=== PATIENT | female | born 1950 ===

== ENCOUNTER → 2017-10-03 | Outpatient (CLI) | payer MEDICARE, OTHER | LOC: GMAB 15:21 | PROVIDERS: ATTEND Family Medicine | DX: E03.9 Hypothyroidism, unspecified (principal) ==

== ENCOUNTER → 2018-01-16 | Outpatient (CLI) | payer MEDICARE, OTHER | LOC: GMAB 16:29 | PROVIDERS: ATTEND Family Medicine | DX: G60.3 Idiopathic progressive neuropathy (principal); G57.93 Unspecified mononeuropathy of bilateral lower limbs; E03.9 Hypothyroidism, unspecified ==

== ENCOUNTER → 2018-01-22 | Outpatient (CLI) | payer MEDICARE, OTHER ==
--- NOTE | 2018-01-22 15:13 | MRI ---
MRI right shoulder without contrast INDICATION: Shoulder pain no specific injury initial encounter TECHNIQUE: Noncontrast MR imaging right shoulder FINDINGS: Mild tendinopathy distal subscapularis. No rupture or retraction. No bicep rupture or dislocation. Mild subacromial and subdeltoid bursitis Fairly high-grade interstitial and bursal surface partial tear distal supraspinatus. No retraction. Infraspinatus is intact. No displaced labral tear. Mild AC joint osteoarthrosis. Grade 1 marbling throughout the rotator cuff muscle bellies. IMPRESSION: High-grade interstitial and bursal surface partial tear distal supraspinatus with adjacent bursitis Mild AC joint osteoarthrosis Mild grade 1 marbling throughout the rotator cuff muscle bellies. Mild tendinopathy distal subscapularis without rupture or retraction Electronically signed by: Richard Dao MD 01/22/2018 3:12 PM CDT
== END ==
LOC: MRI 14:00
PROVIDERS: ATTEND Family Medicine
DX: M75.101 Unspecified rotator cuff tear or rupture of right shoulder, not specified as traumatic (principal); M19.011 Primary osteoarthritis, right shoulder

== ENCOUNTER → 2018-05-08 | Outpatient (CLI) | payer MEDICARE, OTHER | LOC: GMAE 19:17 | PROVIDERS: ATTEND Family Medicine | DX: E03.9 Hypothyroidism, unspecified (principal); R42 Dizziness and giddiness ==

== ENCOUNTER → 2018-08-13 | Outpatient (CLI) | payer MEDICARE, OTHER | LOC: GMAE 14:26 | PROVIDERS: ATTEND Family Medicine | DX: E03.9 Hypothyroidism, unspecified (principal) ==

== ENCOUNTER → 2018-08-17 | Outpatient (CLI) | payer MEDICARE, OTHER ==
--- NOTE | 2018-08-17 10:22 | RAD ---
Pelvis one view INDICATION: Hip pain IMPRESSION: Surgical clips bilateral pelvis. No evidence of fracture or dislocation in the hips. Faint lucency likely overlying skin fold at the junction of the left inferior pubic ramus and pubis. Correlate with tenderness in this area. Similar vague lucency in the right parasymphyseal region likely overlying lucency. Otherwise negative Electronically signed by: Richard Dao MD 08/17/2018 10:21 AM [facility]
--- NOTE | 2018-08-17 10:24 | RAD ---
Left hip 2 views INDICATION: Hip pain IMPRESSION: No fracture or dislocation. Lucent focus in the femoral neck likely impingement lesion/Sami's pit. No acute process Electronically signed by: Richard Dao MD 08/17/2018 10:23 AM [facility]
--- NOTE | 2018-08-17 10:25 | RAD ---
Right hip 2 views INDICATION: Hip pain IMPRESSION: No fracture or dislocation right hip. No advanced osteonecrosis or advanced osteoarthrosis. No acute process Electronically signed by: Richard Dao MD 08/17/2018 10:24 AM [facility]
== END ==
LOC: RAD 08:59
PROVIDERS: ATTEND Orthopaedic Surgery
DX: M25.551 Pain in right hip (principal); M25.552 Pain in left hip

== ENCOUNTER → 2018-08-20 | Outpatient (CLI) | payer MEDICARE, OTHER ==
--- NOTE | 2018-08-21 07:41 | MRI ---
EXAM DESCRIPTION: MRI pelvis/bilateral hips CLINICAL HISTORY: Bilateral hip pain COMPARISON: None. TECHNIQUE: Multiplanar, multisequence MR images of the pelvis/bilateral hips FINDINGS: Right hip: Tear of the anterior superior labrum best seen on oblique axial PD series 601 image 16 and 17. Insertional tendinosis of the gluteus minimus and anterior gluteus medius. The other tendons around the right hip are normal. Normal muscles Left hip: Small chronic impingement related cyst anterior superior femoral head neck junction. Tear of the mid anterior to anterior superior labrum with a small cleft fluid undermining the mid anterior labrum and contiguous tear anterior superior labrum seen on axial PD series 801 images 13 through 16 Severe insertional gluteus minimus tendinosis with intratendinous and peritendinous edema. The remaining tendon attachments to the proximal femur and left pelvis are normal. Normal muscles No pelvic soft tissue mass lesion, adenopathy or free fluid. No filling defect in the urinary bladder. No mass or inflammatory process in the small or large intestine included in the [id number] No abnormality along the course of the visualized lumbosacral plexus and proximal sciatic nerves IMPRESSION: Bilateral anterior superior labral tear of the hip Insertional tendinosis gluteus minimus bilaterally left greater than right. Insertional tendinosis anterior gluteus medius on the right Electronically signed by: Ceferino Toro MD 08/21/2018 7:40 AM [facility]
== END ==
LOC: MRI 14:00
PROVIDERS: ATTEND Orthopaedic Surgery
DX: S76.011A Strain of muscle, fascia and tendon of right hip, initial encounter (principal); S76.012A Strain of muscle, fascia and tendon of left hip, initial encounter; M76.01 Gluteal tendinitis, right hip

== ENCOUNTER → 2018-11-15 | Outpatient (CLI) | payer MEDICARE, OTHER | LOC: GMAE 14:39 | PROVIDERS: ATTEND Family Medicine | DX: E03.9 Hypothyroidism, unspecified (principal) ==

== ENCOUNTER → 2019-03-05 | Outpatient (CLI) | payer MEDICARE, OTHER ==
--- NOTE | 2019-03-05 15:20 | MRI ---
EXAM DESCRIPTION: Brain w/oContrast CLINICAL HISTORY: DISEASE OF SPINAL CORD COMPARISON: None available TECHNIQUE: Non contrast MRI of the brain is performed according to our usual protocol including multiplanar multi sequence technique. FINDINGS: Sagittal T1 images show intact corpus callosum. Normal pituitary gland with normal T1 appearance of the richard and medulla and upper cervical cord. Normal signal intensity within the clivus and calvarium. Axial T2 fat sat images reveal preservation of intracranial vascular flow voids. Small benign-appearing cyst in the left anterior middle cranial fossa 7 mm. Normal azevedo matter and white matter T2 signal intensity. Normal ventricles with normal gyral and sulcal fold pattern. The globes appear intact and symmetrical. No abnormal fluid signal in the tympanic cavities or mastoid air cells. Axial flair images show normal signal intensity of the azevedo matter and the white matter. No microvascular ischemic changes. Diffusion weighted images are negative for focal intense increased signal intensity in the brain parenchyma to suggest restricted diffusion. ADC mapping is negative. Axial T1 images show normal azevedo-white matter differentiation. Small low signal intensity lesion in the posterior right frontal parasagittal region measures 5 mm with prominent vessel leading inferiorly toward the ventricle and ipsilateral lateral ventricle. This is consistent with a small venous angioma, incidental finding. No high signal intensity hemorrhagic lesion of the brain parenchyma. No subdural hematoma. Axial susceptibility weighted images are negative for focal signal loss to suggest abnormal brain parenchymal calcification or hemosiderin deposition. IMPRESSION: No acute intracranial pathologic process. Right frontal and right anterior ethmoidal sinusitis. Electronically signed by: Edison Groves MD 03/05/2019 3:18 PM CDT
--- NOTE | 2019-03-05 15:28 | MRI ---
EXAM DESCRIPTION: Cervical Spine CLINICAL HISTORY: DISEASE OF SPINAL CORD COMPARISON: None Available. TECHNIQUE: MRI of the cervical spine is performed according to our usual protocol. FINDINGS: Sagittal T2 images reveal decreased signal intensity within the intervertebral discs with loss of height consistent with disc degeneration at the C4-5 and C5-6 levels. Normal T2 appearance of the cervical cord. Posterior discal abnormalities are mild at the C4-5 and C5-6 levels. Sagittal T1 images show benign marrow signal characteristics. Advanced facet degenerative changes on the right with prominent spurring at C3-4. Normal T1 appearance of the cervical and upper thoracic spinal cord. Normal alignment of the vertebral bodies and facets. Sagittal STIR images are negative for high signal intensity marrow edema within the vertebral bodies or posterior elements. Prominent facet degenerative changes on the right at C3-4 with increased fluid in the facet joint and mild surrounding reactive edema in the articular processes. No paraspinous fluid collection or cystic lesion. Axial images were obtained to evaluate the disc levels. C2-3: Normal posterior disc margin with no spinal stenosis or neural foraminal narrowing. Mild facet hypertrophic spurring bilaterally. Normal appearance of the cord at this level. C3-4: Minimal posterior disc/osteophyte complex without spinal stenosis. There is [id number] right and mild left neural foraminal narrowing related to facet hypertrophic spurring. Advanced degenerative changes of the right facet joint. Normal appearance of the cord at this level. C4-5: Mild diffuse posterior disc/osteophyte complex without spinal stenosis. There is moderate right and mild left neural foraminal narrowing. Facets appear mildly hypertrophic. Normal appearance of the cord at this level. C5-6: Mild posterior bulge without spinal stenosis. There is moderate left neural foraminal narrowing related to facet and uncovertebral joint spurring. Normal appearance of the cord at this level. C6-7: Normal posterior disc margin with no spinal stenosis or neural foraminal narrowing. Mild facet hypertrophic changes bilaterally. Normal appearance of the cord at this level. C7-T1: Normal posterior disc margin with no spinal stenosis or neural foraminal narrowing. Mild facet hypertrophy bilaterally. Normal appearance of the cord at this level. IMPRESSION: Normal morphology and signal intensity of the cervical and upper thoracic spinal cord. Negative for spinal stenosis or acute appearing disc herniation. Multilevel facet degenerative changes, most severe on the right at C3-4. Electronically signed by: Edison Groves MD 03/05/2019 3:25 PM CDT
== END ==
LOC: MRI 13:00
PROVIDERS: ATTEND Psychiatry & Neurology Neurology
DX: G95.9 Disease of spinal cord, unspecified (principal); M50.91 Cervical disc disorder, unspecified, high cervical region; J01.20 Acute ethmoidal sinusitis, unspecified; J01.11 Acute recurrent frontal sinusitis

== ENCOUNTER → 2020-01-07 | Outpatient (CLI) | payer MEDICARE, OTHER | LOC: GMAE 11:44 | PROVIDERS: ATTEND Family Medicine | DX: M79.10 Myalgia, unspecified site (principal); E03.9 Hypothyroidism, unspecified; I10 Essential (primary) hypertension; E78.2 Mixed hyperlipidemia ==

== ENCOUNTER → 2020-01-13 | Outpatient (CLI) | payer MEDICARE, OTHER ==
--- NOTE | 2020-01-13 12:30 | RAD ---
EXAM DESCRIPTION: Chest,2 Views CLINICAL HISTORY: POSTERIOR THORACIC PN COMPARISON: None TECHNIQUE: PA/lateral FINDINGS: The lungs are well expanded and clear. No infiltrates or effusions or masses are noted. Breast implants overlie the lower lung oneil bilaterally. Prior left axillary dissection noted. Small granuloma in the peripheral right upper lung field noted. The heart is normal in size and shape with no evidence of vascular congestion. The yunior and mediastinum demonstrate normal contours. The bony spine and chest wall is normal for age in appearance. IMPRESSION: Normal chest, two views Electronically signed by: Ceferino Sherman MD 01/13/2020 12:28 PM CDT
--- NOTE | 2020-01-13 12:32 | RAD ---
EXAM DESCRIPTION: Bilateral Ribs CLINICAL HISTORY: 69 years Female, POSTERIOR THORACIC PN COMPARISON: None. FINDINGS: Five views of the ribs bilaterally demonstrate overlying breast implants over the lower thoracic cavity. Dense calcified granuloma in the right midlung field is noted. No soft tissue mass or bony destructive change seen. No fracture or deformity evident. IMPRESSION: Negative ribs bilaterally. Electronically signed by: Ceferino Sherman MD 01/13/2020 12:30 PM CDT
--- NOTE | 2020-01-13 12:33 | RAD ---
EXAM DESCRIPTION: Thoracic Spine,AP Lateral CLINICAL HISTORY: 69 years Female, POSTERIOR THORACIC PN COMPARISON: None. FINDINGS: Two views of the thoracic spine demonstrate a tiny amount of curvature and generalized modest osteopenia. No fracture or dislocation seen. No destructive process noted. Paraspinous regions and pedicles appear intact. IMPRESSION: Osteopenia and minimal scoliosis of the spine, otherwise negative study. Electronically signed by: Ceferino Sherman MD 01/13/2020 12:32 PM CDT
--- NOTE | 2020-01-15 15:38 | US ---
EXAM DESCRIPTION: Breast,Bilateral: Ultrasound CLINICAL HISTORY: 69 yearsFemaleINCONCLUSIVE MAMMOGRAM bilateral chest wall pain. Bilateral total mastectomies and implants. Personal history of breast cancer. COMPARISON: No prior breast ultrasound or mammographic images at this facility. TECHNIQUE: Transcutaneous scanning of the bilateral chest wall utilizing azevedo-scale and Doppler modes. Scanning performed by the prevention rn. FINDINGS: Ultrasound: Right mastectomy site and implant scanned all 4 quadrants. Fatty tissue noted. Typical double hyperechoic implant capsule. Appears intact where seen. No dominant solid mass, no distinct cyst, no large calcifications and no fluid collection. Left mastectomy site and implant scan all 4 quadrants. Almost predominantly fatty tissue with typical appearance of the implant capsule which appears intact where seen. No dominant solid mass or distinct cyst. No large calcifications or fluid collection. IMPRESSION: Scanning of all 4 quadrants of bilateral mastectomy site showing no ultrasound abnormalities. Implant capsules are intact where seen. Written communication explaining the IMPRESSION and follow-up, will be mailed to the patient and referring health care provider. The FINDINGS and the FOLLOW-UP plan were reviewed in person with the patient after the examination. Electronically signed by: Mayo Abdi MD 01/15/2020 3:36 PM CDT
== END ==
LOC: US 10:00
PROVIDERS: ATTEND Family Medicine
DX: M54.6 Pain in thoracic spine (principal); M54.5 Low back pain; M85.88 Other specified disorders of bone density and structure, other site; M41.9 Scoliosis, unspecified; Z85.3 Personal history of malignant neoplasm of breast; Z90.13 Acquired absence of bilateral breasts and nipples; Z98.82 Breast implant status